=== PATIENT | male | born 1995 | race Caucasian/White ===

== ENCOUNTER 2018-06-01 19:22 | Emergency (ER) | payer SELFPAY ==
[~2018-06-01] VITALS: Ht 175.3 cm; Wt 58.2 kg
[2018-06-01 19:25] VITALS: BP 127/85; TEMP 99
[2018-06-01 20:24] LABS: BASO % 0.5 % (0.0-2.0); EOS # 0.1 (0.0-0.7); EOS % 1.7 % (0-4.0); GRAN # 3.5 (1.4-6.5); GRAN % 58.8 % (42.2-75.2); HEMATOCRIT 48.3 % (42.0-52.0); HEMOGLOBIN 16.9 g/dl (13.5-18.0); LYMPH # 1.7 (1.2-3.4); LYMPH % 27.9 % (20.0-51.0); MEAN CELL VOLUME 87 fl (80.0-100.0); MEAN CORPUSCULAR HEMOGLOBIN 31 pg (27.0-31.0); MEAN CORPUSCULAR HGB CONC 35 g/dl (33.0-37.0); MEAN PLATELET VOLUME 10.4 fl (7.4-10.4); MONO # 0.6 (0.1-0.6); MONO % 10.8 % (1.7-9.3); PLATELET COUNT 254 K/mm3 (130-400); RED BLOOD COUNT 5.55 M/mm3 (4.20-5.60); REDCELL DISTRIBUTION WIDTH-CV 12.1 % (11.5-14.5)
[2018-06-01 20:40] LABS: ALBUMIN 4.8 gm/dL (3.5-5.0); BILIRUBIN,TOTAL 0.6 mg/dL (0.0-1.0); CALCIUM 9.5 mg/dL (8.4-10.2); CREATININE, serum 0.82 mg/dL (0.66-1.25); POTASSIUM 4.3 mmol/L (3.4-5.0); TOTAL PROTEIN 8.3 gm/dL (6.4-8.2)
[2018-06-01] MEDS ORDERED: PREDNISONE10 MG PO (20:58)
[2018-06-01 21:20] VITALS: PULSE 71
== END 2018-06-01 21:22 | disposition home or self-care (01) ==
LOC: COL.ER 19:22
PROVIDERS: Physician Assistant
DX: R06.2 Wheezing (principal); R05 Cough; F17.210 Nicotine dependence, cigarettes, uncomplicated
CPT/HCPCS: J7512

== ENCOUNTER → 2020-08-28 | Emergency (ER) | payer SELFPAY ==
[~2020-08-28] VITALS: Ht 175.3 cm; Wt 61.4 kg
[~2020-08-28] MED LIST: FLEXERIL 1010 MG/TAB PO; NAPROSYN500 MG PO; PREDNISONE10 MG PO
[2020-08-28 13:56] VITALS: BP 123/68; PULSE 73; TEMP 98.7
== END ==
LOC: COL.ER 13:30
DX: M54.5 Low back pain (principal); F17.210 Nicotine dependence, cigarettes, uncomplicated; Z79.52 Long term (current) use of systemic steroids
CPT/HCPCS: J1885

== ENCOUNTER 2022-01-16 14:44 | Emergency (ER) | payer SELFPAY ==
[~2022-01-16] VITALS: Ht 175.3 cm; Wt 59.1 kg
[2022-01-16 14:53] VITALS: TEMP 98.3
[2022-01-16 15:26] LABS: BASO # 0.1 K/mm3 (0.0-0.2); BASO % 1.2 % (0.0-2.0); EOS # 0.1 K/mm3 (0.0-0.7); EOS % 1.8 % (0.0-4.0); GRAN # 3.7 K/mm3 (1.4-6.5); GRAN % 54.6 % (42.2-75.2); HEMATOCRIT 48.8 % (42.0-52.0); HEMOGLOBIN 16.7 g/dl (13.5-18.0); LYMPH # 2.1 K/mm3 (1.2-3.4); LYMPH % 31.1 % (20.0-51.0); MEAN CELL VOLUME 89 fl (80.0-100.0); MEAN CORPUSCULAR HEMOGLOBIN 31 pg (27-31); MEAN CORPUSCULAR HGB CONC 34 g/dl (33.0-37.0); MEAN PLATELET VOLUME 10.2 fl (7.4-10.4); MONO # 0.8 K/mm3 (0.1-0.6); PLATELET COUNT 238 K/mm3 (130-400); RED BLOOD COUNT 5.48 M/mm3 (4.20-5.60); REDCELL DISTRIBUTION WIDTH-CV 12.1 % (11.5-14.5)
[2022-01-16 15:40] LABS: TRICYCLIC ANTIDEPRESS URINE NEGATIVE
[2022-01-16 15:45] LABS: ALBUMIN 4.6 gm/dL (3.5-5.0); BILIRUBIN,TOTAL 0.8 mg/dL (0.2-1.2); C-REACTIVE PROTEIN 0.08 mg/dL (0.00-0.50); CALCIUM 8.9 mg/dL (8.4-10.2); CREATININE, serum 1.04 mg/dL (0.72-1.25); POTASSIUM 4.3 mmol/L (3.5-4.5); TOTAL PROTEIN 7.4 gm/dL (6.2-8.1)
[2022-01-16] MEDS ORDERED: ZOFRAN ODT4 MG PO (15:53)
[2022-01-16 16:28] VITALS: BP 129/66; PULSE 72
== END 2022-01-16 16:28 | disposition home or self-care (01) ==
LOC: COL.ER 14:44
PROVIDERS: Physician Assistant
DX: R11.2 Nausea with vomiting, unspecified (principal); F17.210 Nicotine dependence, cigarettes, uncomplicated
CPT/HCPCS: J2405; J7030

== ENCOUNTER 2022-01-27 18:02 | Emergency (ER) | payer SELFPAY ==
[~2022-01-27] VITALS: Ht 175.3 cm; Wt 59.1 kg
[~2022-01-27 18:02] MED LIST changes: +ZOFRAN ODT4 MG PO
[2022-01-27 18:09] VITALS: TEMP 97.8
[2022-01-27] MEDS ORDERED: CRUTCHES MC (18:49)
[2022-01-27 19:09] VITALS: BP 126/72; PULSE 98
== END 2022-01-27 19:09 | disposition home or self-care (01) ==
LOC: COL.ER 18:02
DX: S80.01XA Contusion of right knee, initial encounter (principal); F17.200 Nicotine dependence, unspecified, uncomplicated; Z28.311 Partially vaccinated for COVID-19; W22.8XXA Striking against or struck by other objects, initial encounter; Y92.59 Other trade areas as the place of occurrence of the external cause; Y99.0 Civilian activity done for income or pay
CPT/HCPCS: L1830; L1846

== ENCOUNTER 2022-02-04 17:13 | Emergency (ER) | payer SELFPAY ==
[~2022-02-04] VITALS: Ht 175.3 cm; Wt 61.4 kg
[~2022-02-04 17:13] MED LIST changes: +CRUTCHES MC
[2022-02-04 17:15] VITALS: TEMP 98
[2022-02-04 18:25] LABS: BASO # 0.1 K/mm3 (0.0-0.2); BASO % 1.1 % (0.0-2.0); EOS # 0.1 K/mm3 (0.0-0.7); GRAN # 3.5 K/mm3 (1.4-6.5); GRAN % 53.8 % (42.2-75.2); HEMATOCRIT 44.6 % (42.0-52.0); HEMOGLOBIN 15.6 g/dl (13.5-18.0); LYMPH # 2.2 K/mm3 (1.2-3.4); LYMPH % 33.3 % (20.0-51.0); MEAN CELL VOLUME 88 fl (80.0-100.0); MEAN CORPUSCULAR HEMOGLOBIN 31 pg (27-31); MEAN CORPUSCULAR HGB CONC 35 g/dl (33.0-37.0); MEAN PLATELET VOLUME 10.1 fl (7.4-10.4); MONO # 0.6 K/mm3 (0.1-0.6); MONO % 9.6 % (1.7-9.3); PLATELET COUNT 236 K/mm3 (130-400); RED BLOOD COUNT 5.09 M/mm3 (4.20-5.60); REDCELL DISTRIBUTION WIDTH-CV 11.9 % (11.5-14.5)
[2022-02-04 18:44] LABS: ALBUMIN 4.4 gm/dL (3.5-5.0); BILIRUBIN,TOTAL 0.6 mg/dL (0.2-1.2); CALCIUM 8.5 mg/dL (8.4-10.2); CREATININE, serum 0.87 mg/dL (0.72-1.25); TOTAL PROTEIN 7.1 gm/dL (6.2-8.1)
[2022-02-04 18:53] LABS: ACETAMINOPHEN < 1.0 ug/mL (10-30); ALCOHOL(ethanol),MEDICAL < 10 mg/dL (0-10); SALICYLATE < 5.0 mg/dL (15.0-30.0)
[2022-02-04 19:38] VITALS: BP 109/64; PULSE 99
== END 2022-02-04 19:38 | disposition home or self-care (01) ==
LOC: COL.ER 17:13
PROVIDERS: Nurse Practitioner
DX: G43.909 Migraine, unspecified, not intractable, without status migrainosus (principal); F17.200 Nicotine dependence, unspecified, uncomplicated; Z28.311 Partially vaccinated for COVID-19
CPT/HCPCS: J1200; J1885; J2550; J2765; J7030